=== PATIENT | female | born 1950 | race Caucasian/White ===

== ENCOUNTER 2022-11-21 15:58 | Emergency (ER) | payer OTHER, BC ==
[2022-11-21] MEDS ORDERED: ACETAMINOPHEN 325 MG TABLET (FP) PO ONE (16:14)
[2022-11-21] MEDS ORDERED: ACETAMINOPHEN 325 MG TABLET (FP) ONE (16:32)
[2022-11-21 17:12] VITALS: BP 153/80; PULSE 84; RESP 16; TEMP 97.8; BMI 28.3
== END 2022-11-21 17:21 | disposition home or self-care (01) ==
LOC: FER 15:58
DX: S80.12XA Contusion of left lower leg, initial encounter (principal); W22.09XA Striking against other stationary object, initial encounter
CPT/HCPCS: 73590-TC-LT-FY; 99283-25